=== PATIENT | male | born 1990 | race Caucasian/White ===

== ENCOUNTER 2021-04-26 07:51 | Emergency (ER) | payer SELFPAY ==
[~2021-04-26] VITALS: Ht 36.1 cm; Wt 77.0 kg
--- NOTE | 2021-04-26 08:17 | ED Respiratory ---
General Chief Complaint: Cough/Cold/Flu Symptoms Stated Complaint: FEVER, FATIGUE,LOSS OF APPETITE Nursing Triage Note: ARRIVED VIA AMB TO ROOM 10 WITH COMPLAINTS OF LEFT SIDED LUNG PAIN WHEN HE BREATHES. STATES HE HAD A FEVER X2 DAYS AGO. Source: patient Exam Limitations: no limitations (GIANA BOSTON MED STUDENT) History of Present Illness Date Seen by Provider: Apr 26, 2021 Time Seen by Provider: 08:02 Initial Comments Mr. Flynn is a 31yo male with PMH of asthma that presents to ED today due to some recent fevers and a R sided chest pain with inspiration that developed this morning. He states that last week on sunday he developed a fever that lasted a couple of days. He got better and was not really having any symptoms until last night. He appears anxious and talks about how he is concerned with the possibility of world war 3 and other current events, this caused him to feel like he had a "psych breakdown" last night and states he was in some sort of dissociative state, like when he had tried acid before. He woke up this morning with a Sharp R sided pain in his thorax with inspiration. He complains of SOB, some palpatations, and some constipation/Diarrhea. Denies fever, chills, nausea, vomiting, Abdominal pain, dysuria, or any rashes or swelling. He has tried taking some ibuprofen but didn't help much. He states he had an adverse reaction to steroids in the past. He is Vaccinated w/ moderna x2 a couple of months ago a nd has not sick contacts as far as he can tell. (GIANA BOSTON MED STUDENT) Timing/Duration: week, changing over time Severity: mild, moderate Modifying Factors: Improves With Rest Associated Symptoms: chest pain/soreness (Right and left lower along the rib margin), cough, fever/chills, muscle aches (VIVI DEGROOT MD) Allergies and Home Medications Allergies Coded Allergies: No Known Drug Allergies (Unverified , 04/26/21) Patient Home Medication List Home Medication List Reviewed: Yes (VIVI DEGROOT MD) Review of Systems Review of Systems Constitutional: No chills; fever (Not at present, but last had a fever on Sunday) EENTM: No hearing loss, No vision loss Respiratory: No cough; short of breath (related to inspirational pain) Cardiovascular: No chest pain, No edema; palpitations Gastrointestinal: No abdominal pain; constipation, diarrhea; No nausea, No vomiting Genitourinary: No dysuria, No hematuria Musculoskeletal: No joint pain, No joint swelling Skin: No pruritus, No rash Psychiatric/Neurological: Anxiety (Related to current world events); Denies Headache, Denies Numbness (GIANA BOSTON STUDENT) All Other Systems Reviewed Negative Unless Noted: Yes (VIVI DEGROOT MD) Past Ncgdxgu-Wgsvyj-Twztcz Hx Patient Social History Smoking Status: Former Smoker Substance use?: Yes Alcohol Use?: No (GIANA BOSTON) Substance use?: Yes Substance type: Marijuana Substance frequency: Once in a while (VIVI DEGROOT MD) Immunizations Up To Date Second COVID19 Vaccination Jose: 03/18 COVID19 Vaccine Strap Buckler: MODERNA (GIANA BOSTON) Family Medical History Reviewed Nursing Family Hx (VIVI DEGROOT MD) Physical Exam Vital Signs - First Documented 04/26/21 07:55 Temp 36.1 Pulse 71 Resp 16 B/P (MAP) 146/87 (106) Pulse Ox 97 O2 Delivery Room Air (VIVI DEGROOT MD) Capillary Refill : Less Than 3 Seconds (GIANA BOSTON) Height: '" Weight: lbs. oz. kg; 590.00 BMI Method: General Appearance: WD/WN, other (anxious) Eyes: Bilateral Eye PERRL, Bilateral Eye EOMI HEENT: PERRL/EOMI, pharynx normal Respiratory: chest non-tender, lungs clear, normal breath sounds, other (Inspirational pain on R thorax, not tender to palpation) Cardiovascular: regular rate, rhythm, no edema, no murmur Gastrointestinal: normal bowel sounds, non tender, soft Extremities: no pedal edema, no calf tenderness, normal capillary refill Neurologic/Psychiatric: alert, normal mood/affect, oriented x 3 Skin: normal color, warm/dry (GIANA BOSTON MED STUDENT) General Appearance: WD/WN, no apparent distress HEENT: PERRL/EOMI, pharynx normal Neck: full range of motion, supple, lymphadenopathy (R) (Mild submandibular), lymphadenopathy (L) (Mildly secondarily) Respiratory: lungs clear, normal breath sounds, no respiratory distress Cardiovascular: regular rate, rhythm, no edema, no murmur Gastrointestinal: non tender, soft Neurologic/Psychiatric: alert Skin: normal color, warm/dry (VIVI DEGROOT MD) Progress/Results/Core Measures Suspected Sepsis SIRS Temperature: Pulse: 71 Respiratory Rate: 16 Blood Pressure 146 /87 Mean: 106 (GIANA BOSTON MED STUDENT) Results/Orders Lab Results Laboratory Tests Test 04/26/21 08:00 Range/Units Influenza Type A (RT-PCR) Not Detected Not Detecte Influenza Type B (RT-PCR) Not Detected Not Detecte SARS-CoV-2 RNA (RT-PCR) Not Detected Not Detecte (VIVI DEGROOT MD) My Orders Orders - VIVI DEGROOT MD Covid 19 Inhouse Test (04/26/21 08:24) Chest 1 View, Ap/Pa Only (04/26/21 08:24) Influenza A And B By Pcr (04/26/21 08:24) Albuterol Inhaler (Albuterol) (04/26/21 09:01) (VIVI DEGROOT MD) Vital Signs/I&O 04/26/21 07:55 Temp 36.1 Pulse 71 Resp 16 B/P (MAP) 146/87 (106) Pulse Ox 97 O2 Delivery Room Air (VIVI DEGROOT MD) Vital Signs/I&O Capillary Refill : Less Than 3 Seconds (GIANA BOSTON STUDENT) Blood Pressure Mean: 106 Progress Note : Time: 08:20 Progress Note Pt was seen and interviewed. Due to his symptoms and recent fevers will be testing for flu and covid. Has clear chest sounds, and good vitals. He sounds pretty anxious during interview and think it might play a part in the symptoms he is feeling. Appears to have a good fluid status. Will also get CXR. (GIANA BOSTON MED STUDENT) Progress Note : Progress Note I have seen and evaluated the patient and agree with above except as indicated. Directed the plan of care. Patient is here with 1 week of illness in which she started last week with cough, fatigue, sore throat and fever. This lasted se veral days and he got better. States he was sleeping up to 14 hours a day during that timeframe. He felt like he was mentating well last 2 days he said no right low chest wall pain may be a little left lower chest wall pain. States he had an episode last night relates to psychedelic episode. 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 Better this morning. Main concern is the right lower chest wall pain after the infection. He is vaccinated for Covid. He is not sure what he had last week. Evaluation as above. We will check chest x-ray as well as Covid and influenza screen. Albuterol MDI given with teaching. Monitor patient. 0940: Doing a little better. Chest x-ray is negative as well as Covid and influenza. He feels comfortable going home. He will continue ibuprofen and acetaminophen at home as needed. Discharged home with return precautions. Patient verbalized understanding instructions and agreement with plan. (VIVI DEGROOT MD) Diagnostic Imaging Diagonstic Imaging: Xray Plain Films/CT/US/NM/MRI: chest Comments [facility], [place] NAME: LINDA STEVENSON [facility] REC#: [id number] PT STATUS: REG ER : 1990 PHYSICIAN: VIVI DEGROOT MD ADMIT DATE: 04/26/21/ER Draft Date of Exam:04/26/21 CHEST 1 VIEW, AP/PA ONLY HISTORY: Left chest pain, cough COMPARISON: None TECHNIQUE: Frontal view of the chest. FINDINGS: Lung volumes are normal. No consolidation is seen. There is no pleural effusion or pneumothorax. The cardiac silhouette is normal in size. IMPRESSION: 1. No acute pulmonary abnormality. Dictated on workstation # [id number] Dict: 04/26/21 0908 Trans: 04/26/21 0910 CV [id number] Interpreted by: DANILO ASIF MD Electronically signed by: (VIVI DEGROOT MD) Departure Impression Primary Impression: Upper respiratory tract infection Qualified Codes: J06.9 - Acute upper respiratory infection, unspecified Additional Impression: Chest wall pain Disposition: HOME, SELF-CARE Condition: Improved Departure-Patient Inst. Decision time for Depature: 09:44 (VIVI DEGROOT MD) Referrals: NO,LOCAL PHYSICIAN (PCP/Family) Primary Care Physician Patient Instructions: Costochondritis (DC), Viral Upper Respiratory Infection, Adult (DC) Add. Discharge Instructions: All discharge instructions reviewed with patient and/or family. Voiced understanding. You may take ibuprofen 600 mg every 8 hours as needed for pain. You may also take Tylenol/acetaminophen 1000 mg every 8 hours as needed for pain. Drink plenty of fluids and get plenty of rest. Follow-up with your doctor in a few days for recheck. Use albuterol inhaler 2 puffs every 4-6 hours as needed for shortness of breath or cough. Return for worse pain, fever, vomiting, weakness, breathing problems or other concerns as needed. GIANA BOSTON MED STUDENT Apr 26, 2021 08:17 VIVI DEGROOT MD Apr 26, 2021 09:44
[2021-04-26] MEDS ORDERED: RT-ALBUTEROL HFA 8.5 GM INHALER IH STA (09:01)
--- NOTE | 2021-04-26 09:10 | Diagnostic Imaging Report ---
HISTORY: Left chest pain, cough COMPARISON: None TECHNIQUE: Frontal view of the chest. FINDINGS: Lung volumes are normal. No consolidation is seen. There is no pleural effusion or pneumothorax. The cardiac silhouette is normal in size. IMPRESSION: 1. No acute pulmonary abnormality. Dictated by: Dictated on workstation # [id number]
[2021-04-26 09:52] VITALS: BP 141/93
== END 2021-04-26 09:52 | disposition home or self-care (01) ==
LOC: ER 07:54
DX: J06.9 Acute upper respiratory infection, unspecified (principal); R07.89 Other chest pain; Z20.822 Contact with and (suspected) exposure to COVID-19
CPT/HCPCS: 71045; 87636

== ENCOUNTER 2021-04-28 10:37 | Emergency (ER) | payer SELFPAY ==
[~2021-04-28] VITALS: Ht 170 cm; Wt 86.1 kg
[2021-04-28] MEDS ORDERED: HYDR25CA PO (12:10)
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
[2021-04-28 12:18] VITALS: BP 132/95
== END 2021-04-28 12:17 | disposition home or self-care (01) ==
LOC: EDUNIT# 10:37 → ER 10:39
DX: F41.0 Panic disorder [episodic paroxysmal anxiety] (principal); F40.9 Phobic anxiety disorder, unspecified; F44.81 Dissociative identity disorder; F17.290 Nicotine dependence, other tobacco product, uncomplicated
CPT/HCPCS: 82947